=== PATIENT | female | born 1965 | race Two or more races ===

== ENCOUNTER 2024-05-25 09:48 | Outpatient (AMB) | payer MEDICAID, SELFPAY ==
[2024-05-25 10:08] VITALS: BP 96/55; PULSE 58; RESP 19; TEMP 36.3; O2SAT 98; BMI 26.6
--- NOTE | 2024-05-25 10:08 | ORTHONT_ITS ---
Vital signs 05/25/24 10:08 Height 1.52 m Height Method Stated Weight 61.83 kg Weight Measurement Method Standing Scale BMI 26.6 BP 96/55 L Blood Pressure Source Automatic Cuff Blood Pressure Location Left Upper Arm Position Sitting Respiration 19 Pulse 58 L Pulse Source Monitor Temp 97.4 F Temp Source Temporal Artery Scan Pulse Oximetry (%) 98 Oxygen Delivery Method Room Air Med/Allergies Allergies & Medications Allergies No Known Allergies Allergy (Verified 05/25/24 10:09) Medication Reconciliation ibuprofen 600 mg tablet 600 mg PO Q8H PRN 05/25/24 [History Confirmed 05/25/24] Subjective Visit Visit for: new patient, hip and knee (RIGHT) Immunization / Flu Flu Vaccine in the Last 12 Months: No Flu Vaccine Exclusion Criteria: No Exclusion Criteria History of Present Illness Chief complaint: RIGHT KNEE PAIN Chantal is a pleasant 58-year-old female with right hip pain and right knee pain. This been ongoing for more than a year. She has had a prior meniscectomy on the right 2 years ago done in [place]. She has persistent knee pain since then. Her right hip is bothering her as well. She has difficulty putting on socks and shoes and has significant pain in the groin. She has tried ibuprofen and multiple injections in her right knee. Pain Pain level (0-10): 7 Pain duration: ALL DAY Pain location: inside (medial), outside (lateral), anterior and posterior Pain quality: sharp, dull, aching, burning and shocking Pain timing: night, increases with activity and stairs Associated signs & symptoms: stiffness Ambulatory data Ambulatory device: none Treatments Number of previous injections: 4 Improvement with previous injections: No Number of Physical Therapy sessions: 12 Improvement with PT: No Improvement with NSAIDS: no Review of Systems Review of Systems: All systems negative unless otherwise noted in HPI. Exam Exam Patient is in no acute distress and is cooperative with the examination today. Breathing is nonlabored. In no respiratory distress. Patient has no paraspinal tenderness. Spinal deformity [cannot] be appreciated. The gait of the patient is [nonantalgic] Bilateral extremities were evaluated and demonstrates sensation intact to light touch. Palpable pedal pulses are present. No significant edema is present. Bilateral knees were examined and the patient has full strength and range of motion.. The left hip was examined. Patient was able to flex to 90 degrees, adduct to 30 degrees, abduct to 40 degrees, internally rotate to 20 degrees, and externally rotate to 20 degrees. Patient has a negative logroll. Stinchfield is negative. The patient is nontender diffusely to touch. The right hip was examined. Patient was able to flex to [90] degrees, adduct to [30] degrees, abduct to [40] degrees, internally rotate to 0 degrees, and externally rotate to [20] degrees. Patient has a [negative] logroll. The stinchfield is [negative]. X-rays of the right hip demonstrates complete joint space obliteration and subchondral cysts. Assessment and Plan Problem List (1) Arthritis of right hip: Status: Acute Plan: Patient is a 50-year-old female with right hip pain and severe right hip arthritis. She reports that her right knee actually bothers her the most. We have no weightbearing x-rays of the right knee. We will get weightbearing x- rays and go from there. We will do a telephone visit in 2 days and she will get x-rays today. Will likely talk about different treatment options as she is failed conservative treatment already. We will likely talk about knee replacement versus hip replacement the next visit. She reports her knee hurts significantly more. (2) Pain in right knee: Status: Acute Office Procedures GNS Level of Care Nursing/Assessment Patient Status: Initial/New Patient Nursing Assessment/Reassesment: Medication Reconciliation, Update PMH in EMR and Vital Signs Coordination of Care: Complex Care and Chronic Disease 1-5, Education Complex Pt/Fam, Consent,records obtained, informed consent, 1 Ins Authorization, Lab and Imaging orders, Results/Orders obtained and Staff clarify orders Special Needs: Language special needs New Patient Charge New Patient Point Assignment: 1124 New Patient Point Charge: VERIFICATION MANAGER Level 4 ([id number]) Past Medical History Past Medical History Have you ever been diagnosed with any of the following: Respiratory Problems Smoking: No Smoking Exposure: No
== END 2024-05-25 10:25 | disposition home or self-care (01) ==
PROVIDERS: PCP Nurse Practitioner Family; Referring Provider Nurse Practitioner Family; Supervising Provider Orthopaedic Surgery Adult Reconstructive Orthopaedic Surgery; Visit Provider Orthopaedic Surgery Adult Reconstructive Orthopaedic Surgery
DX: M16.11 Unilateral primary osteoarthritis, right hip (principal); M25.561 Pain in right knee
CPT/HCPCS: 99204; G0463

== ENCOUNTER 2024-05-27 11:54 | Outpatient (AMB) | payer MEDICAID, SELFPAY ==
--- NOTE | 2024-05-27 11:33 | ORTHONT_ITS ---
Med/Allergies Allergies & Medications Allergies No Known Allergies Allergy (Verified 05/27/24 11:34) Medication Reconciliation ibuprofen 600 mg tablet 600 mg PO Q8H PRN 05/25/24 [History Confirmed 05/27/24] Subjective Visit Visit for: follow up visit, hip and x-rays (RESULTS) Immunization / Flu Flu Vaccine in the Last 12 Months: No Flu Vaccine Exclusion Criteria: Already Received History of Present Illness Chief complaint: XRAY RESULTS Chantal is a pleasant 58-year-old female with right hip pain and right knee pain. This been ongoing for more than a year. She has had a prior meniscectomy on the right 2 years ago done in [place]. She has persistent knee pain since then. Her right hip is bothering her as well. She has difficulty putting on socks and shoes and has significant pain in the groin. She has tried ibuprofen and multiple injections in her right knee. Pain Pain level (0-10): 8 Pain duration: CONSTANT Pain location: inside (medial) and outside (lateral) Pain quality: sharp, dull and aching Pain timing: night and increases with activity Associated signs & symptoms: weakness and stiffness Ambulatory data Ambulatory device: none Treatments Number of previous injections: 4 Improvement with previous injections: No Number of Physical Therapy sessions: 12 Improvement with PT: No Improvement with NSAIDS: no Review of Systems Review of Systems: All systems negative unless otherwise noted in HPI. Assessment and Plan Problem List (1) Arthritis of right hip: Status: Acute Plan: Patient is a 50-year-old female with right hip pain and severe right hip arthritis. She reports that her right knee actually bothers her the most. We have no weightbearing x-rays of the right knee. We will get weightbearing x- rays and go from there. We will do a telephone visit in 2 days and she will get x-rays today. Will likely talk about different treatment options as she has failed conservative treatment already. We recommend a hip replacement after she is done with her cosmetic surgery which is in a similar region. We will probably do it through a lateral approach (2) Pain in right knee: Status: Acute Office Procedures GNS Level of Care Nursing/Assessment Patient Status: Established Patient Nursing Assessment/Reassesment: Medication Reconciliation, Update PMH in EMR and Vital Signs Coordination of Care: Complex Care and Chronic Disease 1-5, Education Complex Pt/Fam, Consent,records obtained, informed consent, 1 Ins Authorization, Results/Orders obtained and Staff clarify orders Established Patient Charge Established Patient Point Assignment: 110 Telehealth Telemed Phone/Video with patient at home & Dr,PA,AIR POLLUTION CONTROL ENGINEER: Yes
== END 2024-05-27 11:55 | disposition home or self-care (01) ==
LOC: HODSRG 11:54
PROVIDERS: PCP Nurse Practitioner Family; Referring Provider Nurse Practitioner Family; Supervising Provider Orthopaedic Surgery Adult Reconstructive Orthopaedic Surgery; Visit Provider Orthopaedic Surgery Adult Reconstructive Orthopaedic Surgery
DX: M16.11 Unilateral primary osteoarthritis, right hip (principal); M25.551 Pain in right hip; M25.561 Pain in right knee
CPT/HCPCS: 99212; G0463

== ENCOUNTER 2024-11-16 13:37 | Outpatient (AMB) | payer MEDICAID, SELFPAY ==
[2024-11-16 14:14] VITALS: BP 107/74; PULSE 70; RESP 18; TEMP 36.4; O2SAT 98; BMI 28.1
--- NOTE | 2024-11-16 14:14 | PD.ORTHCLVIS ---
Vital signs 11/16/24 14:14 Height 1.52 m Height Method Stated Weight 65.005 kg Weight Measurement Method Standing Scale BMI 28.1 BP 107/74 Blood Pressure Source Automatic Cuff Blood Pressure Location Right Upper Arm Position Sitting Respiration 18 Pulse 70 Pulse Source Monitor Temp 97.5 F Temp Source Temporal Artery Scan Pulse Oximetry (%) 98 Oxygen Delivery Method Room Air Med/Allergies Allergies & Medications Allergies No Known Allergies Allergy (Verified 11/16/24 14:19) Medication Reconciliation ibuprofen 600 mg tablet 600 mg PO Q8H PRN 05/25/24 [History Confirmed 11/16/24] Exam Exam Patient is in no acute distress and is cooperative with the examination today. Breathing is nonlabored. In no respiratory distress. Patient has no paraspinal tenderness. Spinal deformity [cannot] be appreciated. The gait of the patient is [nonantalgic] Bilateral extremities were evaluated and demonstrates sensation intact to light touch. Palpable pedal pulses are present. No significant edema is present. Bilateral knees were examined and the patient has full strength and range of motion.. The left hip was examined. Patient was able to flex to 90 degrees, adduct to 30 degrees, abduct to 40 degrees, internally rotate to 20 degrees, and externally rotate to 20 degrees. Patient has a negative logroll. Stinchfield is negative. The patient is nontender diffusely to touch. The right hip was examined. Patient was able to flex to [90] degrees, adduct to [30] degrees, abduct to [40] degrees, internally rotate to 0 degrees, and externally rotate to [20] degrees. Patient has a [negative] logroll. The stinchfield is [negative]. X-rays of the right hip demonstrates complete joint space obliteration and subchondral cysts. Assessment and Plan Problem List (1) Arthritis of right hip: Status: Acute Plan: Patient is a 50-year-old female with right hip pain and severe right hip arthritis. We discussed that her right knee she does not look terrible. The right hip pain is likely contributing to her right knee pain. She has significant right hip arthritis and we thus discussed total hip replacement is a reasonable option. I would likely go with a lateral approach given the recent cosmetic surgery The nature and purpose of the total hip replacement, alternative method(s) of treatment, the material risks involved, and the possibility of complications were fully explained to the patient. The patient does NOT have any of the following contraindications to AZIZA: - Active infection of the hip joint, OR - Active systemic bacteremia, OR - Active skin infection or open wound at surgical site, OR - Neuropathic arthritis, OR - Severe, rapidly progressive neurological disease, OR - Severe medical condition that makes risks of the surgery outweigh the potential benefit The patient was told the most common risks and complications associated with a total hip replacement include, but are not limited to: blood clots in the leg, fatal pulmonary embolism, dislocation of the prosthesis, intraoperative and postoperative fractures of the femur or acetabulum, infection, failure of the prosthesis or grafting materials, complications from anesthesia, reactions to blood transfusions, postoperative leg length inequality, instability of the hip replacement, nerve damage or injury, vascular injury, delayed wound healing, infection, other injury or even . In addition, there are risks associated with anesthesia given during this operation. Also, the patient was told that after undergoing a total hip replacement there may still be persistent pain or disability. The patient was informed that the success of this operation in part depends upon the mechanical devices which are going to be implanted and that these devices can fail or malfunction, and may need to be repaired or replaced and there are no guarantees as to the longevity of this device or its parts and that it or its parts could fail prematurely. The patient was also notified that during the course of surgery, there may be a need to use bone graft from donors, and that any bone graft used will be carefully screened for communicable diseases, including AIDS, hepatitis, Adrián-Creutzfeldt, or other diseases, but despite the screening procedures, there is a small chance that they could contract one of these diseases. Finally, the patient was asked to follow completely and fully with all advice and recommended treatments, and that recovery and ultimate outcome are affected by their compliance with recommended treatment. We discussed the risks, benefits and treatment alternatives, and the patient is interested in proceeding with surgery. We will try to set this up as expeditiously as possible. (2) Pain in right knee: Status: Acute Office Procedures GNS Level of Care Nursing/Assessment Patient Status: Established Patient Nursing Assessment/Reassesment: Medication Reconciliation, Update PMH in EMR and Vital Signs Coordination of Care: Complex Care and Chronic Disease 1-5, Education Complex Pt/Fam, Consent,records obtained, informed consent, 2-3 Insurance Autorizations needed, Lab and Imaging orders, Results/Orders obtained and Staff clarify orders Established Patient Charge Established Patient Point Assignment: 130 Established Patient Point Charge: EP Level 4 (120-155) MA Intake Visit Data Collection New Patient or Established: Established Patient (seen at [facility] within 3 years) Reason for Visit:: FOLLOW UP HIP PAIN Seen by Clinical Staff ONLY (RN/MA): No Verbal consent obtained for Telemed visit?: No Kier Operator Required: No PCP or OBGYN visit in last 3 months: Yes Hx Now: No Do You Feel Safe at Home: Yes Authorities Contacted: N/A Questionairres Past Medical History Past Medical History Have you ever been diagnosed with any of the following: Respiratory Problems Smoking: No Smoking Exposure: No Subjective Visit Visit for: follow up visit, hip and knee Immunization / Flu Flu Vaccine in the Last 12 Months: Yes Flu Vaccine Exclusion Criteria: Already Received History of Present Illness Chief complaint: Right hip pain Patient is a pleasant 59-year-old female with right hip pain that has been ongoing for several years. It has progressively worsened. She has failed conservative treatment and has severe limp when she walks. She has tried anti-inflammatories. She had a recent cosmetic surgery on the right side. Personal History Red flag PMH: BMI BMI Counceling provided: Yes Pain Pain level (0-10): 10 Pain duration: ALL DAY Pain location: inside (medial), outside (lateral), anterior and posterior Pain quality: sharp, dull and aching Pain timing: increases with activity Associated signs & symptoms: stiffness Ambulatory data Ambulatory device: none Treatments Improvement with previous injections: No Improvement with PT: No Improvement with NSAIDS: no Review of Systems Review of Systems: All systems negative unless otherwise noted in HPI.
== END 2024-11-16 14:21 | disposition home or self-care (01) ==
LOC: HODSRG 13:37
PROVIDERS: PCP Nurse Practitioner Family; Referring Provider Nurse Practitioner Family; Supervising Provider Orthopaedic Surgery Adult Reconstructive Orthopaedic Surgery; Visit Provider Orthopaedic Surgery Adult Reconstructive Orthopaedic Surgery
DX: M16.11 Unilateral primary osteoarthritis, right hip (principal); M25.561 Pain in right knee
CPT/HCPCS: 99214; G0463

== ENCOUNTER → 2024-12-15 | Outpatient (CLI) | payer MEDICAID, SELFPAY ==
--- NOTE | 2024-12-15 12:00 | XR_ITS ---
Examination: CT bilateral hips, without contrast. 2-D sagittal reconstructions. 2-D coronal reconstructions. 3-D reconstructions. Date and time of exam:December 15, 2024 1230 hours INDICATIONS: Diagnosis primary unilateral osteoarthritis right hip, hip pain 2 years CTDI: vol (mGy):11.2 DLP: (mGycm):609 Technique: Multiple 1.25 mm axial sections of the bilateral hips without intravenous contrast have been obtained. 2-D sagittal and coronal reconstructions have been obtained. 3-D reconstructions have been obtained. Low dose protocols were performed. One or more of the following dose reduction techniques were used; automated exposure control, adjustment of the mA and/or KV according to patient size, use of iterative reconstruction technique. Findings: Moderate osteopenia Advanced right hip joint osteoarthritis, severe narrowing hip joint with subarticular cyst formation No fracture Moderate narrowing left hip joint No fracture Bones of the pelvis intact IMPRESSION: Advanced right hip osteoarthritis
== END | disposition home or self-care (01) ==
LOC: CCTX 12:17
PROVIDERS: Referring Provider Orthopaedic Surgery Adult Reconstructive Orthopaedic Surgery; Visit Provider Orthopaedic Surgery Adult Reconstructive Orthopaedic Surgery
DX: M16.11 Unilateral primary osteoarthritis, right hip (principal); M85.88 Other specified disorders of bone density and structure, other site; M25.851 Other specified joint disorders, right hip
CPT/HCPCS: 72192; 73700

== ENCOUNTER 2024-12-20 05:35 | Day surgery (SDC) | payer MEDICAID, SELFPAY ==
[2024-12-17 07:12] VITALS: BMI 28.2
--- NOTE | 2024-12-17 07:36 | EKG_ITS ---
[facility] Test Date: 2024-12-17 Pat Name: MARKELL OVALLE Department: Room: - Gender: Female [employer] Gauger: THELMA : 1965 Requested By: Clinton Kearns Order Number: [id number] Reading MD: Clinton Kearns Measurements Intervals [place] Rate: 55 P: 37 NE: 149 QRS: 35 QRSD: 74 T: 22 QT: 391 QTc: 375 Interpretive Statements SINUS BRADYCARDIA LOW QRS VOLTAGE IN PRECORDIAL LEADS [QRS DEFLECTION < 1.0 mV IN CHEST LEADS] No previous ECG available for comparison /store/S0/[id number]
[2024-12-17 09:02] LABS: Basophils % (Auto) 1 % (0-2.5); Eosinophils # (Auto) 0.3 Thou/mm3 (0.0-0.5); Eosinophils % (Auto) 5 % (0-10); Hematocrit 36.7 % (36.0-46.0); Immature Granulocytes % (Auto) 1 % (0-0); Immature Granulocytes Auto 0.03 Thou/mm3 (0.00-0.00); Lymphocytes # (Auto) 2.2 Thou/mm3 (1.0-4.8); Lymphocytes % (Auto) 34 % (10-50); Mean Corpuscular HGB Conc 32.7 g/dl (31.0-37.0); Mean Corpuscular Hemoglobin 28.6 pg (25.0-35.0); Mean Corpuscular Volume 87 fL (80-100); Monocytes # (Auto) 0.5 Thou/mm3 (0.0-0.8); Monocytes % (Auto) 8 % (0-12); Neutrophils # (Auto) 3.3 Thou/mm3 (1.8-7.7); Neutrophils % (Auto) 52 % (37-80); Nucleated Red Blood Cell % 0 /100 WBC (0); Platelet Count 298 Thou/mm3 (140-440); RDW Standard Deviation 42.8 fL (36.4-46.3); White Blood Count 6.4 Thou/mm3 (3.6-11.0)
[2024-12-17 09:09] LABS: Anion Gap 8 (7-16); BUN/Creatinine Ratio 21 Ratio (12-20); Blood Urea Nitrogen 15 mg/dL (9-23); Calcium 9.5 mg/dL (8.3-10.6); Carbon Dioxide 29.4 mMol/L (20.0-31.0); Chloride 105 mMol/L (98-107); Creatinine (Component) 0.7 mg/dL (0.6-1.3); Estimated Creatinine Clearance 73.1 mL/min (>60); Glucose 83 mg/dL (74-106); Osmolality,Calculated 282 (275-295); Sodium 142 mMol/L (136-145); eGFR > 60 See Note
[2024-12-17 09:10] LABS: Partial Thromboplastin Time 25.8 Seconds (22.0-36.0); Prothrombin Time 10.7 Seconds (9.0-12.2)
--- NOTE | 2024-12-17 14:40 | SUR.PREOP ---
Pt had a stress test last year with Dr Jolley is in the chart provided by Dr Jang office. I contacted Dr Jolley office for rest of paperwork, MA stated pt never came back to finish testing. Pt denies any cardiac symptoms.
--- NOTE | 2024-12-17 14:49 | SUR.PREOP ---
stress test reviewed with Dr Kearns.
[2024-12-20] VITALS (16 sets, daily range): BP systolic 89–110; BP diastolic 41–78; PULSE 57–74; RESP 13–20; TEMP 36.2–36.6; O2SAT 95–100; BMI 28.3; BMI 14.0
[2024-12-20] MEDS: MELOXICAM 7.5 MG TABLET PO (06:30)
[2024-12-20] MEDS: PREGABALIN 75 MG CAPSULE PO (06:30)
[2024-12-20] MEDS: ACETAMINOPHEN 325 MG TABLET 650 MG PO (06:30)
--- NOTE | 2024-12-20 08:53 | XR_ITS ---
Examination: AP right knee single view TECHNIQUE: AP right knee single view Date and time: 12/20/2024 0916 hours INDICATIONS: Postop right hip replacement today FINDINGS: Total right hip arthroplasty. Satisfactory alignment IMPRESSION: Total right hip arthroplasty with satisfactory alignment
--- NOTE | 2024-12-20 09:41 | ESOP_ITS ---
Date of Procedure 12/20/24 Pre Op Diagnosis right hip osteoarthritis Post Op Diagnosis right hip osteoarthritis Procedure right total hip replacement margarette Findings full thickness cartilage loss and osteophytes Procedure Description Indications: The patient is a 59y.o. year-old with a longstanding history of right hip pain. After considering the patient's condition and the impact of their hip injury on the patient's quality of life and risks of nonoperative treatment, total hip replacement was offered as a reasonable option. Prior to the surgery I discussed the nature of the hip replacement surgery including alternatives to surgery and the purpose of, and indications for proceeding with surgery. I discussed that this surgery is a shared decision between the patient and the surgeon. Risks and benefits and alternatives of the procedure have been explained to the patient and their family. Anesthesia complications and risks include but are not limited to stroke, heart attack, and . The surgical risks include but are not limited to infection, instability/dislocation, bleeding, nerve and blood vessel injury, deep vein thrombosis, pulmonary embolus, stiffness, pain, scar, need for reoperation, leg length discrepancy, thigh numbness, weakness, and mechanical failure of the implant including loosening, metal complications, metal allergy, wear or breakage. I discussed the expected recovery from surgery and the importance of compliance with all our pre and post-operative recommendations in order to maximize the recovery. The patient/family understands the risks of loss of life, loss of limb and, loss of function and wishes to proceed. They understand they are at increased risk for infection given their history of smoking. A signed and witnessed consent was obtained and placed in the chart. Patient Positioning: The patient was placed in the lateral decubitus position on a standard table using a pegboard. An axillary role was placed. All extremities were padded to ensure adequate protection. A charles catheter was aseptically inserted. Time Out: A timeout was performed prior to the procedure which verified the correct patient, positioning, operation to be performed, operative site, antibiotics, allergies, imaging, and any other concerns. All parties were in agreement. Procedure in detail: The operative site was cleaned and draped in the usual sterile fashion. A final timeout was performed with all parties in agreement. We first placed percutaneous holly pins above the ASIS and attached a hip array. A modified anterolateral approach to the hip was utilized. A 16cm skin incision was made centered over the greater trochanter in line with the femur. This was taken down through skin and subcutaneous tissue using a 10 blade. Bleeding was controlled using electrocautery. The fascia was identified and split in line with the femur. The charnley retractor was then placed. The abductor insertion was identified and a split made in the anterior 1/3 of the tendon proximally. Retractors were placed and the gluteus minimus was visualized. A capsulotomy was made down to the femoral neck anterior to the minimus. A split was then made in the anterior 1/3 of the vastus lateralis. A retractor was then placed anterior to the femoral shaft, the tendon was tagged with #1 ethibond sutures and a U- shaped split was made in the anterior 1/3 of the abductor tendon being careful to leave enough tendon to re-attach. The hip was then gently externally rotated as the anterior tissues were taken down with the tendon and capsule as one sleeve. Once the anterior tissue had been release off of bone a bone hook was placed and the hip was gently dislocated. Retractors were placed around the femoral neck and the femoral neck osteotomy was then made to freshen up the cut. The femoral head removed. The leg was then placed in extension and retractors were placed anterior and posterior to the acetabulum. We first mapped the acetabulum and pelvis with a probe. The inferior capsule was release to improved visualization and the labrum and osteophytes around the acetabulum were removed. The acetabulum was then reamed to bleeding bone with adequate wall coverage and the cup was impacted into place using the pickrset robot. Screws were then placed followed by the liner which was impacted and confirmed to be seated. We then turned our attention to the femur. The leg was brought into external rotation and the femur was exposed. A canal finder was used followed by a box osteotomy and the femur was broached sequentially. The trial stem was then left in and the hip was trialed using various neck offsets and head sizes until the appropriate size was found based on leg length, stability. Once we were satisfied with the construct a cross-table AP pelvis radiograph was obtained to confirm appropriate positioning and sizing. The hip was then dislocated and the trials were then removed and the final stem impacted into placed. The hip was then again trialed and the appropriate head size identified. The mariano taper was then cleaned and dried and the final head impact into place and tested. The acetabulum was irrigated and confirmed to be free of debris. The hip was then reduced and taken through range of motion. The hip was stable in abduction and external rotation, adduction and external rot ation, flexion past 90 degrees and internal rotation past 20 degrees. It did not sublux throughout range of motion and no impingement was detected. Leg lengths were appropriately restored based on preoperative leg lengths and intraoperative testing. Lengths and offset were further verified with the robot. We then removed the pins and the greater troch marker. The hip was then copiously irrigated with dilute betadine followed by normal saline. The hip was then injected with the cocktail per protocol The hip was the closed in layers. The abductor tendon was closed with #1 ethibond. The fascia w as closed with 0 Vicryl followed by an 0 V-lock. . The deep layer was closed with 0-Vicryl and the subcutaneous layer by a 2-0 Vicryl. The subdermal layer was closed with a 3-0 monocryl. The skin was then cleaned and dried and steri- strips placed followed by a sterile dressing. The drapes were then taken down and the patient was placed supine. Leg lengths were confirmed to be appropriate and the patient's lower extremities were warm and well perfused with brisk capillary refill and palpable pulses. The patient was then awoken, transferred to the [facility] and taken to the PACU in stable condition. They tolerated the procedure well. The patient's family/caregiviers were made aware of their condition. Postoperative plan Activity: WBAT, no hip precautions , no active hip abduction DVT Prophylaxis: aspirin 81mg BID Antibiotics: Standard postoperative antibiotics x 24 hours Implants: Jono 48 cup, 4 HIGH insignia, 1 screw, standard liner, 36-5 head Anesthesia GETA Implants jono Pathology / specimen None Pathology comment: none Estimated Blood Loss 150 Condition Stable Disposition same day Surgeon Armando Amor MD Surgical Staff Operation Date: 12/20/24 07:30 Case Staff Anesthesiologist: Clinton Kearns RNadministrative job titles: Rosa De Leon
--- NOTE | 2024-12-20 09:43 | XR_ITS ---
Examination:Right hip AP, lateral, AP pelvis 3 views Technique: Hip AP lateral, AP pelvis, 3 views Exam date and time:December 20, 2024 1041 hours FINDINGS: Total right hip arthroplasty. Satisfactory alignment Prominent osteopenia Left hip bones of the pelvis intact IMPRESSION: Total right hip arthroplasty with satisfactory alignment.
--- NOTE | 2024-12-20 10:10 | SUR.PHASEI ---
pt received from OR in recovery bay 5. pt asleep but responds to voice, breathing unlabored on room air. v/s stable. pt dressing to right hip cdi. report received from Larry WILCOX and Ignacio DARBY.
[2024-12-20] MEDS: fentaNYL CIT INJ 50 mCg/ML AMP 2ML IVP ×2 (10:38→11:22)
--- NOTE | 2024-12-20 10:58 | SUR.PHASEII ---
pt able to tolerate oral fluids without difficulty swallowing or nausea/vomiting.
--- NOTE | 2024-12-20 12:34 | SUR.PHASEII ---
Received report on pt. s/p surgery from Colin WILCOX. Pt. is AAOx3, no c/o pain or nausea at this time. Dressing to right hip CDI.
[2024-12-20] MEDS: oxyCODONE/APAP 5/325 TABLET 1 TAB PO (13:11)
--- NOTE | 2024-12-20 13:48 | SUR.PHASEII ---
pt awake and alert, breathing unlabored on room air. v/s stable. pt dressing to right hip cdi. pt cleared by physical therapist Josefa. pt able to ambulate using walker in pacu hallway. pt able to ambulate to wheelchair with steady gait. d/c instructions given with friend Franklyn in room, all questions answered. pt d/c via wheelchair with all belongings.
--- NOTE | 2024-12-21 13:40 | PD.ANESPROG ---
Documentation for date of: 12/21/24 POST ANESTHESIA NOTE: Patient had spinal anesthesia and MAC for R AZIZA yesterday. I just called and spoke with her on the phone and she denied any problems from anesthesia except reported feeling slight dizzy as expected and otherwise reported I am doing good and was thankful. Clinton Kearns MD Anesthesia Progress Note Progress Note Most recent Vital Signs: Last Vital Signs Temp 97.4 F 12/20/24 13:15 Pulse 68 12/20/24 13:15 Resp 16 12/20/24 13:15 BP 103/68 12/20/24 13:15 Pulse Ox 95 12/20/24 13:15 O2 Flow Rate 2 12/20/24 10:45
== END 2024-12-20 13:48 | disposition home or self-care (01) ==
PROVIDERS: PCP Nurse Practitioner Family; Referring Provider Orthopaedic Surgery Adult Reconstructive Orthopaedic Surgery; Visit Provider Orthopaedic Surgery Adult Reconstructive Orthopaedic Surgery
PROC: (CPT 27130; principal; 2024-12-20 07:30)
DX: M16.11 Unilateral primary osteoarthritis, right hip (principal); Z01.810 Encounter for preprocedural cardiovascular examination; M25.751 Osteophyte, right hip
CPT/HCPCS: 27130; 20985; 36415; 73501; 73502; 80048; 85025; 85610; 85730; 93005; 97162; A4217; A4649; C1713; C1769; C1776; J0690; J1200; J2250; J2371; J2704; J3010; J3490; J7030; J7999; A4648; A9270

== ENCOUNTER 2025-01-04 09:01 | Outpatient (AMB) | payer MEDICAID, SELFPAY ==
--- NOTE | 2024-12-28 13:51 | PD.ORTHCLVIS ---
Med/Allergies Allergies & Medications Allergies No Known Allergies Allergy (Verified 12/20/24 06:13) Assessment and Plan Assessment Assessment: This is an addendum to the progress note. The patient will need home physical therapy given her social situation. Questionairres Past Medical History Past Medical History Have you ever been diagnosed with any of the following: Neurological Problems Seizures: No Cardiology Problems Congestive Heart Failure: No Respiratory Problems Chronic Obstructive Pulmonary Disease (COPD): No Smoking: No Smoking Exposure: No Stomache/Intestinal Problems Hepatitis: No Genital/Urinary Problems Renal Disease: No Reproductive Problems Previous Pregnancies: Yes Musculoskeletal Problems Arthritis: Yes Endocrine Problems Diabetes Mellitus Type 1: No Diabetes Mellitus Type 2: No Other Problems Hospitalization: Yes ([facility]) Shingles: No Blood Transfusions: No Blood Transfusion Reaction: No Anesthesia Reactions: No Chicken Pox: Yes Cancer: No Subjective Immunization / Flu Flu Vaccine in the Last 12 Months: Yes Flu Vaccine Exclusion Criteria: Already Received Review of Systems Review of Systems: All systems negative unless otherwise noted in HPI.
--- NOTE | 2025-01-04 09:35 | PD.ORTHCLVIS ---
Vital signs 01/04/25 09:37 01/04/25 09:38 Height 1.52 m 1.52 m Height Method Stated Stated Weight 64.467 kg 64.467 kg Weight Measurement Method Standing Scale Standing Scale BMI 27.8 27.8 BP 91/57 L 91/57 L Blood Pressure Source Automatic Cuff Automatic Cuff Blood Pressure Location Right Upper Arm Right Upper Arm Position Sitting Sitting Respiration 18 18 Pulse 72 72 Pulse Source Monitor Monitor Temp 98 F 98.2 F Temp Source Temporal Artery Scan Temporal Artery Scan Pulse Oximetry (%) 97 97 Oxygen Delivery Method Room Air Room Air Med/Allergies Allergies & Medications Allergies No Known Allergies Allergy (Verified 01/04/25 09:39) Exam Exam Patient is in no acute distress and is cooperative with the examination today. Breathing is nonlabored. In no respiratory distress. Patient has no paraspinal tenderness. Spinal deformity [cannot] be appreciated. The gait of the patient is [nonantalgic] Bilateral extremities were evaluated and demonstrates sensation intact to light touch. Palpable pedal pulses are present. No significant edema is present. Bilateral knees were examined and the patient has full strength and range of motion.. The left hip was examined. Patient was able to flex to 90 degrees, adduct to 30 degrees, abduct to 40 degrees, internally rotate to 20 degrees, and externally rotate to 20 degrees. Patient has a negative logroll. Stinchfield is negative. The patient is nontender diffusely to touch. Right hip incision is clean dry intact. Leg lengths are equal Assessment and Plan Problem List (1) Status post total hip replacement, right: Status: Acute Assessment Assessment: Patient is doing well status post right total hip replacement. We recommend physical therapy. She is doing very well and thriving. She is not on any pain medication Office Procedures GNS Level of Care Nursing/Assessment Patient Status: Established Patient Nursing Assessment/Reassesment: Medication Reconciliation, Update PMH in EMR and Vital Signs Coordination of Care: Complex Care and Chronic Disease 1-5, Education Complex Pt/Fam, Consent,records obtained, informed consent, Results/Orders obtained and Staff clarify orders Established Patient Charge Established Patient Point Assignment: 95 Established Patient Point Charge: EP Level 3 (80-115) MA Intake Visit Data Collection New Patient or Established: Established Patient (seen at [facility] within 3 years) Reason for Visit:: 2 WEEKS POST OP Seen by Clinical Staff ONLY (RN/MA): No Verbal consent obtained for Telemed visit?: No Commercial Stripper Required: No PCP or OBGYN visit in last 3 months: Yes Hx Now: No Do You Feel Safe at Home: Yes Authorities Contacted: N/A Questionairres Past Medical History Past Medical History Have you ever been diagnosed with any of the following: Neurological Problems Seizures: No Cardiology Problems Congestive Heart Failure: No Respiratory Problems Chronic Obstructive Pulmonary Disease (COPD): No Smoking: No Smoking Exposure: No Stomache/Intestinal Problems Hepatitis: No Genital/Urinary Problems Renal Disease: No Reproductive Problems Previous Pregnancies: Yes Musculoskeletal Problems Arthritis: Yes Endocrine Problems Diabetes Mellitus Type 1: No Diabetes Mellitus Type 2: No Other Problems Hospitalization: Yes ([facility]) Shingles: No Blood Transfusions: No Blood Transfusion Reaction: No Anesthesia Reactions: No Chicken Pox: Yes Cancer: No Subjective Visit Visit for: follow up visit and hip Immunization / Flu Flu Vaccine in the Last 12 Months: No Flu Vaccine Exclusion Criteria: No Exclusion Criteria History of Present Illness Chief complaint: Right total hip replacement Chantal is 2 weeks status post right total hip replacement. She is doing well. She is happy with her pain relief at this time. She is working with therapy at home Pain Pain level (0-10): 4 Pain duration: COMES AND GOES Pain location: outside (lateral) Pain quality: dull and aching Ambulatory data Ambulatory device: walker Treatments Improvement with previous injections: No Improvement with PT: No Improvement with NSAIDS: no Review of Systems Review of Systems: All systems negative unless otherwise noted in HPI.
[2025-01-04 09:37] VITALS: BP 91/57; PULSE 72; RESP 18; TEMP 36.6; O2SAT 97; BMI 27.8
[2025-01-04 09:38] VITALS: BP 91/57; PULSE 72; RESP 18; TEMP 36.8; O2SAT 97; BMI 27.8
== END 2025-01-04 09:37 | disposition home or self-care (01) ==
LOC: HODSRG 09:01
PROVIDERS: PCP Nurse Practitioner Family; Referring Provider Nurse Practitioner Family; Supervising Provider Orthopaedic Surgery Adult Reconstructive Orthopaedic Surgery; Visit Provider Orthopaedic Surgery Adult Reconstructive Orthopaedic Surgery
DX: Z96.641 Presence of right artificial hip joint (principal)
CPT/HCPCS: 99213; G0463

== ENCOUNTER 2025-02-01 10:39 | Outpatient (AMB) | payer MEDICAID, SELFPAY ==
--- NOTE | 2025-02-01 11:08 | PD.ORTHCLVIS ---
Vital signs 02/01/25 11:09 Height 1.52 m Height Method Stated Weight 64.977 kg Weight Measurement Method Standing Scale BMI 28.1 BP 116/70 Blood Pressure Source Automatic Cuff Blood Pressure Location Left Upper Arm Position Sitting Respiration 19 Pulse 70 Pulse Source Monitor Temp 98.1 F Temp Source Temporal Artery Scan Pulse Oximetry (%) 97 Oxygen Delivery Method Room Air Med/Allergies Allergies & Medications Allergies No Known Allergies Allergy (Verified 02/01/25 11:10) Medication Reconciliation ibuprofen 600 mg tablet 600 mg PO Q8H PRN pain 05/25/24 [History Confirmed 02/01/25] aspirin 81 mg tablet,delayed release 81 mg PO BID #60 tabs 12/20/24 [Rx Confirmed 02/01/25] doxycycline hyclate 100 mg tablet 100 mg PO BID #14 tabs 12/20/24 [Rx Confirmed 02/01/25] gabapentin 300 mg capsule 300 mg PO .qhs #30 caps 12/20/24 [Rx Confirmed 02/01/25] sennosides 8.6 mg-docusate sodium 50 mg tablet (Senna-S) 1 tab-cap PO QDAY #30 tabs 12/20/24 [Rx Confirmed 02/01/25] acetaminophen 500 mg tablet (Acetaminophen Extra Strength) 1,000 mg (2 x 500 mg) PO Q6H PRN pain #90 tabs 01/04/25 [Rx Confirmed 02/01/25] cyclobenzaprine 5 mg tablet 5 mg PO QHS PRN muscle spasm #30 tabs 02/01/25 [Rx] oxycodone 5 mg tablet 5 mg PO Q6H PRN pain #28 tabs 02/01/25 [Rx] Exam Exam Patient is in no acute distress and is cooperative with the examination today. Breathing is nonlabored. In no respiratory distress. Patient has no paraspinal tenderness. Spinal deformity [cannot] be appreciated. The gait of the patient is [nonantalgic] Bilateral extremities were evaluated and demonstrates sensation intact to light touch. Palpable pedal pulses are present. No significant edema is present. Bilateral knees were examined and the patient has full strength and range of motion.. The left hip was examined. Patient was able to flex to 90 degrees, adduct to 30 degrees, abduct to 40 degrees, internally rotate to 20 degrees, and externally rotate to 20 degrees. Patient has a negative logroll. Stinchfield is negative. The patient is nontender diffusely to touch. Right hip incision is clean dry intact. Leg lengths are equal Assessment and Plan Problem List (1) Status post total hip replacement, right: Status: Acute Assessment Assessment: Patient is doing well status post right total hip replacement. We recommend physical therapy. She is doing very well and thriving. She is not on any pain medication Office Procedures GNS Level of Care Nursing/Assessment Patient Status: Established Patient Nursing Assessment/Reassesment: Medication Reconciliation, Update PMH in EMR and Vital Signs Coordination of Care: Complex Care and Chronic Disease 1-5, Education Complex Pt/Fam, Consent,records obtained, informed consent, Results/Orders obtained and Staff clarify orders Established Patient Charge Established Patient Point Assignment: 95 Established Patient Point Charge: Level 3 (80-115) MA Intake Visit Data Collection New Patient or Established: Established Patient (seen at [facility] within 3 years) Reason for Visit:: 6 WK POST OP AZIZA Seen by Clinical Staff ONLY (RN/MA): No Verbal consent obtained for Telemed visit?: No Pairer Substandard Required: No PCP or OBGYN visit in last 3 months: Yes Hx Now: No Do You Feel Safe at Home: Yes Authorities Contacted: N/A Questionairres Past Medical History Past Medical History Have you ever been diagnosed with any of the following: Neurological Problems Seizures: No Cardiology Problems Congestive Heart Failure: No Respiratory Problems Chronic Obstructive Pulmonary Disease (COPD): No Smoking: No Smoking Exposure: No Stomache/Intestinal Problems Hepatitis: No Genital/Urinary Problems Renal Disease: No Reproductive Problems Previous Pregnancies: Yes Musculoskeletal Problems Arthritis: Yes Endocrine Problems Diabetes Mellitus Type 1: No Diabetes Mellitus Type 2: No Other Problems Hospitalization: Yes ([facility]) Shingles: No Blood Transfusions: No Blood Transfusion Reaction: No Anesthesia Reactions: No Chicken Pox: Yes Cancer: No Subjective Visit Visit for: follow up visit, post op #2 and hip Immunization / Flu Flu Vaccine in the Last 12 Months: No Flu Vaccine Exclusion Criteria: No Exclusion Criteria History of Present Illness Chief complaint: Right total hip replacement Chantal is 2 weeks status post right total hip replacement. She is doing well. She is happy with her pain relief at this time. She is to start outpatient physical therapy. She uses a cane at times Pain Pain level (0-10): 0 Pain duration: COMES AND GOES Pain location: outside (lateral) Pain quality: dull and aching Pain timing: night Associated signs & symptoms: none Ambulatory data Ambulatory device: cane Treatments Improvement with previous injections: No Improvement with PT: No Improvement with NSAIDS: no Review of Systems Review of Systems: All systems negative unless otherwise noted in HPI.
[2025-02-01 11:09] VITALS: BP 116/70; PULSE 70; RESP 19; TEMP 36.7; O2SAT 97; BMI 28.1
--- NOTE | 2025-02-01 11:25 | XR_ITS ---
Examination:Right hip AP, lateral, AP pelvis 3 views Technique: Hip AP lateral, AP pelvis, 3 views Exam date and time:February 01, 2025 1205 hours Comparison December 20, 2024 INDICATIONS: Right hip pain 6 weeks. FINDINGS: Total right knee arthroplasty. Satisfactory alignment. No loosening of the prosthetic components. Mild to moderate narrowing left hip joint IMPRESSION: Total right knee arthroplasty with satisfactory alignment.
--- NOTE | 2025-02-01 11:25 | XR_ITS ---
Examination: Bilateral AP knees single view Right knee PA lateral axial 3 views TECHNIQUE: Bilateral AP knees standing single view Right knee standing PA flexion, standing lateral, axial right knee 3 views total 4 views Date and time: February 01, 2025 1207 hours INDICATIONS: Right knee pain beginning 2 years ago, diagnosis right meniscus tear. FINDINGS: Prominent osteopenia Mild to moderate tricompartment osteoarthritis right knee Mild narrowing medial joint space left knee No fractures IMPRESSION: Mild to moderate tricompartment osteoarthritis right knee
== END 2025-02-01 11:28 | disposition home or self-care (01) ==
LOC: HODSRG 10:39
PROVIDERS: PCP Nurse Practitioner Family; Referring Provider Nurse Practitioner Family; Supervising Provider Orthopaedic Surgery Adult Reconstructive Orthopaedic Surgery; Visit Provider Orthopaedic Surgery Adult Reconstructive Orthopaedic Surgery
DX: Z96.641 Presence of right artificial hip joint (principal); M17.11 Unilateral primary osteoarthritis, right knee
CPT/HCPCS: 73502; 73564; 99213; G0463

== ENCOUNTER 2025-03-29 10:42 | Outpatient (AMB) | payer MEDICAID, SELFPAY ==
--- NOTE | 2025-03-29 10:50 | PD.ORTHCLVIS ---
Vital signs 03/29/25 10:54 Height 1.52 m Height Method Measured Weight 65.884 kg Weight Measurement Method Standing Scale BMI 28.5 BP 106/73 Blood Pressure Source Automatic Cuff Blood Pressure Location Left Upper Arm Position Sitting Respiration 18 Pulse 79 Pulse Source Monitor Temp 97.8 F Temp Source Temporal Artery Scan Pulse Oximetry (%) 98 Oxygen Delivery Method Room Air Med/Allergies Allergies & Medications Allergies No Known Allergies Allergy (Verified 03/29/25 10:55) Medication Reconciliation ibuprofen 600 mg tablet 600 mg PO Q8H PRN pain 05/25/24 [History Confirmed 03/29/25] aspirin 81 mg tablet,delayed release 81 mg PO BID #60 tabs 12/20/24 [Rx Confirmed 03/29/25] doxycycline hyclate 100 mg tablet 100 mg PO BID #14 tabs 12/20/24 [Rx Confirmed 03/29/25] gabapentin 300 mg capsule 300 mg PO .qhs #30 caps 12/20/24 [Rx Confirmed 02/01/25] sennosides 8.6 mg-docusate sodium 50 mg tablet (Senna-S) 1 tab-cap PO QDAY #30 tabs 12/20/24 [Rx Confirmed 03/29/25] acetaminophen 500 mg tablet (Acetaminophen Extra Strength) 1,000 mg (2 x 500 mg) PO Q6H PRN pain #90 tabs 01/04/25 [Rx Confirmed 03/29/25] cyclobenzaprine 5 mg tablet 5 mg PO QHS PRN muscle spasm #30 tabs 02/01/25 [Rx Confirmed 03/29/25] oxycodone 5 mg tablet 5 mg PO Q6H PRN pain #28 tabs 02/01/25 [Rx Confirmed 03/29/25] meloxicam 7.5 mg tablet 7.5 mg PO QDAY #45 tabs 03/29/25 [Rx] Exam Exam Patient is in no acute distress and is cooperative with the examination today. Breathing is nonlabored. In no respiratory distress. Patient has no paraspinal tenderness. Spinal deformity [cannot] be appreciated. The gait of the patient is [nonantalgic] Bilateral extremities were evaluated and demonstrates sensation intact to light touch. Palpable pedal pulses are present. No significant edema is present. Bilateral knees were examined and the patient has full strength and range of motion.. The left hip was examined. Patient was able to flex to 90 degrees, adduct to 30 degrees, abduct to 40 degrees, internally rotate to 20 degrees, and externally rotate to 20 degrees. Patient has a negative logroll. Stinchfield is negative. The patient is nontender diffusely to touch. Right hip incision is clean dry intact. Leg lengths are equal Assessment and Plan Problem List (1) Status post total hip replacement, right: Status: Acute Assessment Assessment: Patient is doing well status post right total hip replacement. We recommend physical therapy. She is doing very wel We will see her back in approximately 9 months Office Procedures GNS Level of Care Nursing/Assessment Patient Status: Established Patient Nursing Assessment/Reassesment: Medication Reconciliation, Update PMH in EMR and Vital Signs Coordination of Care: Complex Care and Chronic Disease 1-5, Education Complex Pt/Fam, Consent,records obtained, informed consent, Results/Orders obtained and Staff clarify orders Established Patient Charge Established Patient Point Assignment: 95 Established Patient Point Charge: EP Level 3 (80-115) MA Intake Visit Data Collection New Patient or Established: Established Patient (seen at [facility] within 3 years) Reason for Visit:: XRAY RESULTS Seen by Clinical Staff ONLY (RN/MA): No Verbal consent obtained for Telemed visit?: No Clothes Wringer Required: No PCP or OBGYN visit in last 3 months: Yes Hx Now: No Do You Feel Safe at Home: Yes Authorities Contacted: N/A Questionairres Past Medical History Past Medical History Have you ever been diagnosed with any of the following: Neurological Problems Seizures: No Cardiology Problems Congestive Heart Failure: No Respiratory Problems Chronic Obstructive Pulmonary Disease (COPD): No Smoking: No Smoking Exposure: No Stomache/Intestinal Problems Hepatitis: No Genital/Urinary Problems Renal Disease: No Reproductive Problems Previous Pregnancies: Yes Musculoskeletal Problems Arthritis: Yes Endocrine Problems Diabetes Mellitus Type 1: No Diabetes Mellitus Type 2: No Other Problems Hospitalization: Yes ([facility]) Shingles: No Blood Transfusions: No Blood Transfusion Reaction: No Anesthesia Reactions: No Chicken Pox: Yes Cancer: No Subjective Visit Visit for: follow up visit, post op #2 and hip Immunization / Flu Flu Vaccine in the Last 12 Months: No Flu Vaccine Exclusion Criteria: No Exclusion Criteria History of Present Illness Chief complaint: Right total hip replacement Chantal is 2 weeks status post right total hip replacement. She is doing well. She is happy with her pain relief at this time. She is doing well and has no pain at all Pain Pain level (0-10): 0 Pain duration: COMES AND GOES Pain location: outside (lateral) Pain quality: dull and aching Pain timing: night Associated signs & symptoms: none Ambulatory data Ambulatory device: cane Treatments Improvement with previous injections: No Improvement with PT: No Improvement with NSAIDS: no Review of Systems Review of Systems: All systems negative unless otherwise noted in HPI.
[2025-03-29 10:54] VITALS: BP 106/73; PULSE 79; RESP 18; TEMP 36.6; O2SAT 98; BMI 28.5
== END 2025-03-29 10:57 | disposition home or self-care (01) ==
LOC: HODSRG 10:42
PROVIDERS: PCP Nurse Practitioner Family; Referring Provider Nurse Practitioner Family; Supervising Provider Orthopaedic Surgery Adult Reconstructive Orthopaedic Surgery; Visit Provider Orthopaedic Surgery Adult Reconstructive Orthopaedic Surgery
DX: Z96.641 Presence of right artificial hip joint (principal)
CPT/HCPCS: 99213; G0463